=== PATIENT | female | born 1970 | race African-American/Black ===

== ENCOUNTER 2018-03-30 07:28 | Inpatient (IN) ==
[2018-03-24 12:09] LABS: Basophils # 0.1 10*3/uL (0.0-0.2); Basophils % 0.6 % (0.0-0.8); Eosinophils % 0.3 % (0.00-10.9); Hematocrit 37.3 VOL% (35.7-47.0); Hemoglobin 11.8 GM/DL (12.0-16.0); Immature Granulocytes % 0.7 %; Immature Granulocytes Absolute 0.08 #; Lymphocytes % 33.2 % (21.3-54.2); Mean Corpuscular HGB Conc 31.6 GM/DL (32-36); Mean Corpuscular Hemoglobin 33 PG (27-34); Mean Corpuscular Volume 103.9 FL (87-102); Mean Platelet Volume 10.3 FL (9.6-12.0); Monocytes # 0.7 10*3/uL (0.11-0.8); Monocytes % 5.9 % (1.7-12.7); Neutrophils # 7.2 10*3/uL (1.4-7.4); Neutrophils % 59.3 % (38.7-73.9); Platelet Count 352 T/CUMM (130-400); Red Blood Count 3.59 MC/CUMM (3.8-5.5); Red Cell Distribution Width 15.9 % (9.3-17.3); White Blood Count 12.1 T/CUMM (4-12)
[2018-03-24 12:23] LABS: Calcium 9.1 MG/DL (8.5-10.1); Osmolality,Calculated 283.5 MOS/KG (273-304); Potassium 3.5 MMOL/L (3.5-5.1)
[~2018-03-30 07:28] MED LIST: LACTATED RINGERS 1,000 ML IV SCH; ceFAZolin 1,000 MG VIAL ONE; ceFAZolin 1,000 MG in SYRINGE 1 EACH IV ONE
[2018-03-30] MEDS ORDERED: ONDANSETRON 4 MG/2 ML VIAL IV ONE (09:18)
[2018-03-30] MEDS ORDERED: SCOPOLAMINE 1.5 MG PATCH TRANSDERM ONE ×2 (09:18→09:34)
[2018-03-30] MEDS ORDERED: LORazepam 1 MG TABLET PO ONE (09:18)
[2018-03-30] MEDS ORDERED: FAMOTIDINE 20 MG TABLET PO ONE (09:18)
[2018-03-30] MEDS ORDERED: FAMOTIDINE 20 MG TABLET ONE (09:34)
[2018-03-30] MEDS ORDERED: ONDANSETRON 4 MG/2 ML VIAL ONE (09:34)
[2018-03-30] MEDS ORDERED: LORazepam 1 MG TABLET ONE (09:34)
[2018-03-30] MEDS ORDERED: LIDOCAINE 1%/EPI INJ 20 ML VIAL ONE (09:36)
[2018-03-30] MEDS ORDERED: TISSUE ADHESIVE 1 EACH APPLICATOR TOP ONE (11:07)
[2018-03-30] MEDS ORDERED: MIDAZOLAM 2 MG/2 ML VIAL ONE (11:54)
[2018-03-30] MEDS ORDERED: ROCURONIUM 100 MG/10 ML VIAL IV ONE (11:56)
[2018-03-30] MEDS ORDERED: PROPOFOL 200 MG/20 ML VIAL IV ONE (11:56)
[2018-03-30] MEDS ORDERED: ALBUTEROL/IPRATROPIUM 3 ML NEB RESP TX PRN (11:58)
[2018-03-30] MEDS ORDERED: ONDANSETRON 4 MG/2 ML VIAL IV PRN ×2 (11:58)
[2018-03-30] MEDS ORDERED: ESMOLOL 100 MG/10 ML VIAL IV ONE (11:58)
[2018-03-30] MEDS ORDERED: GLUCAGON 1 MG VIAL IM PRN (11:58)
[2018-03-30] MEDS ORDERED: PROMETHAZINE 25 MG/1 ML VIAL IM PRN (11:58)
[2018-03-30] MEDS ORDERED: HYDROmorphone 2 MG/1 ML VIAL IV PRN ×2 (11:58)
[2018-03-30] MEDS ORDERED: ACETAMINOPHEN 325 MG TABLET PO PRN (11:58)
[2018-03-30] MEDS ORDERED: METOPROLOL TARTRATE 5 MG/5 ML VIAL IV ONE (11:58)
[2018-03-30] MEDS ORDERED: DEXTROSE 50% 25 GM/50 ML SYRINGE IV PRN (11:58)
[2018-03-30] MEDS ORDERED: GLYCOPYRROLATE 0.4 MG/2 ML VIAL ONE ×2 (11:59)
[2018-03-30] MEDS ORDERED: SUCCINYLCHOLINE 200 MG/10 ML VIAL ONE (12:00)
[2018-03-30] MEDS ORDERED: NEOSTIGMINE 10 MG/10 ML VIAL ONE (12:00)
[2018-03-30] MEDS ORDERED: SEVOFLURANE 1 UNIT/15 MINUTE INH ONE (12:00)
[2018-03-30] MEDS ORDERED: HYDROmorphone 2 MG/1 ML VIAL ONE (12:01)
[2018-03-30] MEDS: HYDROmorphone 2 MG/1 ML VIAL IV PRN ×3 (12:13→12:22)
[2018-03-30] MEDS ORDERED: LORazepam 0.5 MG TABLET PO PRN ×2 (13:24→15:00)
[2018-03-30] MEDS ORDERED: ZALEPLON 5 MG CAPSULE PO PRN (13:30)
[2018-03-30] MEDS: LACTATED RINGERS 1,000 ML IV SCH ×2 (13:47→21:22)
[2018-03-30] MEDS: BETHANECHOL 25 MG TABLET PO SCH ×3 (13:48→21:26)
[2018-03-30] MEDS: INSULIN LISPRO 100 UNIT/ML SUBCUT SCH ×2 (13:51→16:54)
[2018-03-30] MEDS: cefOXitin 2,000 MG in SYRINGE 1 EACH IV SCH ×2 (16:16→21:23)
[2018-03-30] MEDS: PROCHLORPERAZINE 10 MG TABLET PO PRN (17:28)
[2018-03-30] MEDS: tiZANidine 4 MG TABLET PO SCH (17:29)
[2018-03-30] MEDS ORDERED: tiZANidine 4 MG TABLET PO SCH (21:00)
[2018-03-30] MEDS: CLOTRIMAZOLE/BETAMETHASONE CREAM 15 GM TUBE TOP SCH (21:26)
[2018-03-31] MEDS: PROCHLORPERAZINE 10 MG TABLET PO PRN ×2 (03:04→08:43)
[2018-03-31] MEDS: cefOXitin 2,000 MG in SYRINGE 1 EACH IV SCH (03:09)
[2018-03-31] MEDS: LACTATED RINGERS 1,000 ML IV SCH ×2 (03:14→11:42)
[2018-03-31 04:38] LABS: Basophils % 0.4 % (0.0-0.8); Eosinophils % 0.5 % (0.00-10.9); Hematocrit 34.7 VOL% (35.7-47.0); Hemoglobin 11.2 GM/DL (12.0-16.0); Immature Granulocytes % 0.4 %; Immature Granulocytes Absolute 0.03 #; Lymphocytes # 2.2 10*3/uL (1.4-4.0); Lymphocytes % 28.7 % (21.3-54.2); Mean Corpuscular HGB Conc 32.3 GM/DL (32-36); Mean Corpuscular Hemoglobin 32 PG (27-34); Mean Corpuscular Volume 100.3 FL (87-102); Mean Platelet Volume 10.7 FL (9.6-12.0); Monocytes # 0.7 10*3/uL (0.11-0.8); Monocytes % 8.8 % (1.7-12.7); Neutrophils # 4.8 10*3/uL (1.4-7.4); Neutrophils % 61.2 % (38.7-73.9); Platelet Count 368 T/CUMM (130-400); Red Blood Count 3.46 MC/CUMM (3.8-5.5); White Blood Count 7.8 T/CUMM (4-12)
[2018-03-31 05:14] LABS: Calcium 8.6 MG/DL (8.5-10.1); Osmolality,Calculated 276.5 MOS/KG (273-304); Potassium 3.2 MMOL/L (3.5-5.1)
[2018-03-31] MEDS ORDERED: LEVOTHYROXINE 150 MCG TABLET PO SCH (06:30)
[2018-03-31 07:52] VITALS: BP 131/85
[2018-03-31] MEDS: INSULIN LISPRO 100 UNIT/ML SUBCUT SCH (08:33)
[2018-03-31] MEDS: tiZANidine 4 MG TABLET PO SCH (08:42)
[2018-03-31] MEDS: BETHANECHOL 25 MG TABLET PO SCH (08:43)
[2018-03-31] MEDS ORDERED: PANTOPRAZOLE 40 MG TABLET PO SCH (09:00)
[2018-03-31] MEDS ORDERED: GEMFIBROZIL 600 MG TABLET PO SCH (09:00)
[2018-03-31] MEDS ORDERED: TRIAMTERENE/HCTZ 37.5-25 MG CAPSULE PO SCH (09:00)
[2018-03-31] MEDS: CLOTRIMAZOLE/BETAMETHASONE CREAM 15 GM TUBE TOP SCH (11:44)
[2018-04-01] MEDS ORDERED: CHOLECALCIFEROL 5,000 UNIT TABLET PO SCH (09:00)
== END 2018-03-31 11:43 | disposition home or self-care (01) | DRG 41 ==
LOC: N.OR 07:28 → N.SDSINP 07:28 → N.3E 11:58
PROVIDERS: ADMIT Surgery; ATTEND Surgery

== ENCOUNTER 2018-04-10 05:54 | Inpatient (IN) ==
[2018-04-10] MEDS ORDERED: NOREPINEPHRINE 8 MG in SODIUM CHLORIDE 0.9% 242 ML IV PRN (06:00)
[2018-04-10] MEDS ORDERED: VANCOMYCIN INJ 1,000 MG in SODIUM CHLORIDE 0.9% 250 ML IV STA ×2 (06:00→06:48)
[2018-04-10] MEDS ORDERED: SODIUM CHLORIDE 0.9% 1,000 ML IV STA (06:02)
[2018-04-10] MEDS ORDERED: NOREPINEPHRINE 16 MG in SODIUM CHLORIDE 0.9% 234 ML IV PRN (06:02)
[2018-04-10] MEDS ORDERED: PROMETHAZINE 25 MG/1 ML VIAL IM STA (06:03)
[2018-04-10 06:22] LABS: ABG Base Excess -18.1 MMOL/L (-2.5-2.5); ABG HCO3 11.3 MMOL/L (20-26); ABG Oxygen Saturation 94.4 % (95-100); ABG PCO2 28.4 MM HG (35-48); ABG PO2 93.9 MM HG (80-95); ABG TCO2 9.2 MMOL/L (23-27); Allen Test Positive
[2018-04-10 06:23] LABS: ABG PH 7.155 (7.35-7.45)
[2018-04-10 06:52] LABS: Amorphous Crystals,Urine Occasional /HPF (Few); Apearance,Urine CLOUDY (Clear); Bilirubin,Urine Negative (Negative); Blood, Urine Moderate mg/dL (Negative); Glucose,Urine (UA) Negative (Negative); Hyaline Casts,Urine 27 /LPF (0-3); Ketones,Urine Negative (Negative); Mucus,Urine Occasional /LPF (Occasional); Nitrite,Urine Negative (Negative); Protein,Urine 100 MG/DL; RBC,Urine 15 /HPF (0-4); Squamous Epithelial Cell,Urine Occasional /HPF (0-10); Urine Color Amber (Yellow); Urine Specific Gravity 1.019 (1.001-1.035)
[2018-04-10 07:21] LABS: Basophils % 0.2 % (0.0-0.8); Eosinophils # 0.5 10*3/uL (0.0-0.87); Eosinophils % 3.7 % (0.00-10.9); Hematocrit 37.6 VOL% (35.7-47.0); Immature Granulocytes % 1.8 %; Immature Granulocytes Absolute 0.22 #; Lymphocytes # 2.1 10*3/uL (1.4-4.0); Lymphocytes % 16.5 % (21.3-54.2); Mean Corpuscular HGB Conc 31.9 GM/DL (32-36); Mean Corpuscular Hemoglobin 33 PG (27-34); Mean Corpuscular Volume 102.5 FL (87-102); Mean Platelet Volume 11.3 FL (9.6-12.0); Monocytes % 7.8 % (1.7-12.7); NRBC # 0.04 10*3/uL; Neutrophils # 8.8 10*3/uL (1.4-7.4); Platelet Count 374 T/CUMM (130-400); Red Blood Count 3.67 MC/CUMM (3.8-5.5); Red Cell Distribution Width 15.4 % (9.3-17.3); White Blood Count 12.5 T/CUMM (4-12)
[2018-04-10 07:29] LABS: INR 1.2; PT Patient Result 12.9 SECS; Partial Thromboplastin Time 32.4 SECS (0-40)
[2018-04-10] MEDS: PIPERACILLIN/TAZOBACTAM 3,375 MG in SODIUM CHLORIDE 0.9% 100 ML IV SCH ×2 (07:35→13:53)
[2018-04-10 07:44] LABS: Anisocytosis Slight; Band Neutrophils 58 % (0-10); Eosinophils 1 % (0-10); Lymphocytes 21 % (20-55); Metamyelocytes 5 %; Nucleated Red Blood Cells 1 (0-5); Platelet Estimate Normal; Poikilocytosis Slight; Segmented Neutrophils 11 % (50-85); Total Cells Counted 100
[2018-04-10 07:45] LABS: Macrocytosis Slight
[2018-04-10] MEDS ORDERED: LORazepam 2 MG/1 ML VIAL ONE (07:49)
[2018-04-10 07:50] LABS: Alanine Aminotransferase 34 U/L (13-56); Albumin 2.6 G/DL (3.4-5.0); Alkaline Phosphatase 125 U/L (45-117); Aspartate Amino Transferase 47 U/L (0-37); Blood Urea Nitrogen 65 MG/DL (7-18); Calcium 7.4 MG/DL (8.5-10.1); Glucose 165 MG/DL (74-106); Potassium 4.4 MMOL/L (3.5-5.1); Sodium 136 MMOL/L (136-145); Total Protein 6.7 G/DL (6.4-8.3)
[2018-04-10] MEDS ORDERED: LORazepam 2 MG/1 ML VIAL IV STA (07:52)
[2018-04-10] MEDS ORDERED: ALBUTEROL 2.5 MG/3 ML NEB RESP TX PRN (08:38)
[2018-04-10] MEDS ORDERED: ALBUTEROL 2.5 MG/3 ML NEB RESP TX STA (08:51)
[2018-04-10] MEDS ORDERED: SODIUM BICARB INJ 50 MEQ in SODIUM CHLORIDE 0.45% 1,000 ML IV SCH (09:00)
[2018-04-10] MEDS: ONDANSETRON 4 MG/2 ML VIAL IV PRN ×2 (10:35→22:03)
[2018-04-10 12:04] LABS: Calcium 7.1 MG/DL (8.5-10.1); Potassium 3.7 MMOL/L (3.5-5.1)
[2018-04-10] MEDS: ALBUTEROL/IPRATROPIUM 3 ML NEB RESP TX SCH ×2 (13:27→19:39)
[2018-04-10] MEDS ORDERED: LEVOFLOXACIN INJ 750 MG in PREMIX 1 EACH IV ONE (13:30)
[2018-04-10] MEDS ORDERED: PIPERACILLIN/TAZOBACTAM 3,375 MG in SODIUM CHLORIDE 0.9% 100 ML IV SCH (14:00)
[2018-04-10] MEDS: SODIUM BICARB INJ 150 MEQ in STERILE WATER INJ 850 ML IV SCH ×2 (15:09→22:03)
[2018-04-10] MEDS: HYDROmorphone 2 MG/1 ML VIAL IV PRN ×2 (16:23→22:03)
[2018-04-11] MEDS: ALBUTEROL/IPRATROPIUM 3 ML NEB RESP TX SCH ×4 (01:20→20:12)
[2018-04-11] MEDS: PIPERACILLIN/TAZOBACTAM 3,375 MG in SODIUM CHLORIDE 0.9% 100 ML IV SCH ×2 (03:11→13:47)
[2018-04-11 04:10] LABS: ABG Base Excess 4.9 MMOL/L (-2.5-2.5); ABG HCO3 28.8 MMOL/L (20-26); ABG Oxygen Saturation 96.7 % (95-100); ABG PCO2 42.8 MM HG (35-48); ABG PH 7.446 (7.35-7.45); ABG PO2 97.6 MM HG (80-95); ABG TCO2 26.6 MMOL/L (23-27); Allen Test Positive
[2018-04-11] MEDS: HYDROmorphone 2 MG/1 ML VIAL IV PRN ×3 (04:12→18:28)
[2018-04-11] MEDS: SODIUM BICARB INJ 150 MEQ in STERILE WATER INJ 850 ML IV SCH (04:12)
[2018-04-11 04:39] LABS: Basophils % 0.3 % (0.0-0.8); Eosinophils % 0.4 % (0.00-10.9); Hematocrit 29.9 VOL% (35.7-47.0); Hemoglobin 10.4 GM/DL (12.0-16.0); Immature Granulocytes % 2.1 %; Immature Granulocytes Absolute 0.17 #; Lymphocytes # 1.1 10*3/uL (1.4-4.0); Lymphocytes % 13.7 % (21.3-54.2); Mean Corpuscular HGB Conc 34.8 GM/DL (32-36); Mean Corpuscular Hemoglobin 33 PG (27-34); Mean Corpuscular Volume 94.9 FL (87-102); Mean Platelet Volume 11.5 FL (9.6-12.0); Monocytes # 0.9 10*3/uL (0.11-0.8); Monocytes % 11.8 % (1.7-12.7); Neutrophils # 5.7 10*3/uL (1.4-7.4); Neutrophils % 71.7 % (38.7-73.9); Platelet Count 292 T/CUMM (130-400); Red Blood Count 3.15 MC/CUMM (3.8-5.5); Red Cell Distribution Width 14.6 % (9.3-17.3); White Blood Count 7.9 T/CUMM (4-12)
[2018-04-11 05:06] LABS: Calcium 7.1 MG/DL (8.5-10.1); Osmolality,Calculated 297.4 MOS/KG (273-304); Potassium 2.7 MMOL/L (3.5-5.1)
[2018-04-11 05:07] LABS: Hypochromasia 1+; Macrocytosis Slight; Platelet Estimate Adequate
[2018-04-11] MEDS ORDERED: POTASSIUM CHLORIDE RIDER 10 MEQ in PREMIX 1 EACH IV PRN (05:43)
[2018-04-11] MEDS: POTASSIUM CHLORIDE RIDER 20 MEQ in PREMIX 1 EACH IV PRN ×3 (05:59→17:27)
[2018-04-11] MEDS: LEVOTHYROXINE 100 MCG VIAL IV SCH (06:10)
[2018-04-11] MEDS: ASPIRIN CHEW 81 MG TABLET PO SCH (08:00)
[2018-04-11] MEDS: POTASSIUM CHLORIDE INJ 30 MEQ in SODIUM CHLORIDE 0.45% 1,000 ML IV SCH ×2 (09:00→19:09)
[2018-04-11] MEDS: HEPARIN 5,000 UNIT/1 ML VIAL SUBCUT SCH ×2 (09:31→17:23)
[2018-04-11] MEDS: POTASSIUM CHLORIDE RIDER 10 MEQ in PREMIX 1 EACH IV PRN ×2 (11:59→20:00)
[2018-04-11] MEDS ORDERED: DEXTROSE 50% 25 GM/50 ML SYRINGE IV PRN (13:44)
[2018-04-11] MEDS ORDERED: GLUCAGON 1 MG VIAL IM PRN (13:44)
[2018-04-11 14:20] LABS: Calcium 7.1 MG/DL (8.5-10.1); Osmolality,Calculated 293.1 MOS/KG (273-304); Potassium 3.4 MMOL/L (3.5-5.1)
[2018-04-11] MEDS: AMINO ACIDS/DEXT/LYTES 4.25-5% 2,000 ML IV SCH (17:17)
[2018-04-11] MEDS ORDERED: HYDROmorphone 2 MG/1 ML VIAL IV ONE (22:37)
[2018-04-12] MEDS: ALBUTEROL/IPRATROPIUM 3 ML NEB RESP TX SCH ×4 (01:59→19:46)
[2018-04-12] MEDS: HEPARIN 5,000 UNIT/1 ML VIAL SUBCUT SCH ×3 (02:13→18:57)
[2018-04-12] MEDS: PIPERACILLIN/TAZOBACTAM 3,375 MG in SODIUM CHLORIDE 0.9% 100 ML IV SCH ×3 (02:13→19:01)
[2018-04-12] MEDS: HYDROmorphone 2 MG/1 ML VIAL IV PRN ×3 (03:55→22:03)
[2018-04-12 04:12] LABS: Basophils % 0.2 % (0.0-0.8); Eosinophils # 0.1 10*3/uL (0.0-0.87); Eosinophils % 0.9 % (0.00-10.9); Hematocrit 29.8 VOL% (35.7-47.0); Hemoglobin 9.9 GM/DL (12.0-16.0); Lymphocytes # 1.6 10*3/uL (1.4-4.0); Lymphocytes % 18.8 % (21.3-54.2); Mean Corpuscular HGB Conc 33.2 GM/DL (32-36); Mean Corpuscular Hemoglobin 33 PG (27-34); Mean Platelet Volume 10.9 FL (9.6-12.0); Monocytes # 0.7 10*3/uL (0.11-0.8); NRBC # 0.02 10*3/uL; Neutrophils # 5.6 10*3/uL (1.4-7.4); Neutrophils % 65.1 % (38.7-73.9); Platelet Count 265 T/CUMM (130-400); Red Blood Count 3.04 MC/CUMM (3.8-5.5); Red Cell Distribution Width 15.3 % (9.3-17.3); White Blood Count 8.6 T/CUMM (4-12)
[2018-04-12 05:02] LABS: Band Neutrophils 4 % (0-10); Hypochromasia 1+; Lymphocytes 23 % (20-55); Platelet Estimate Adequate; Segmented Neutrophils 67 % (50-85); Total Cells Counted 100
[2018-04-12 05:03] LABS: Macrocytosis Slight
[2018-04-12 05:08] LABS: Calcium 7.6 MG/DL (8.5-10.1); Osmolality,Calculated 282.1 MOS/KG (273-304); Potassium 3.6 MMOL/L (3.5-5.1)
[2018-04-12] MEDS: POTASSIUM CHLORIDE RIDER 20 MEQ in PREMIX 1 EACH IV PRN (05:23)
[2018-04-12] MEDS: POTASSIUM CHLORIDE INJ 30 MEQ in SODIUM CHLORIDE 0.45% 1,000 ML IV SCH ×2 (05:29→16:54)
[2018-04-12] MEDS: LEVOTHYROXINE 100 MCG VIAL IV SCH (07:07)
[2018-04-12] MEDS: ASPIRIN CHEW 81 MG TABLET PO SCH (09:06)
[2018-04-12] MEDS: LEVOFLOXACIN INJ 750 MG in PREMIX 1 EACH IV SCH (11:09)
[2018-04-12] MEDS: POTASSIUM PHOS/SOD PHOS 250 MG TABLET PO SCH ×3 (12:32→22:03)
[2018-04-12] MEDS: METOPROLOL TARTRATE 25 MG TABLET PO SCH ×2 (12:32→22:03)
[2018-04-12] MEDS: LORazepam 1 MG TABLET PO PRN (16:50)
[2018-04-12] MEDS: AMINO ACIDS/DEXT/LYTES 4.25-5% 2,000 ML IV SCH (18:33)
[2018-04-12] MEDS: ONDANSETRON 4 MG/2 ML VIAL IV PRN (22:04)
[2018-04-13] MEDS: ALBUTEROL/IPRATROPIUM 3 ML NEB RESP TX SCH ×6 (00:08→19:12)
[2018-04-13] MEDS: HEPARIN 5,000 UNIT/1 ML VIAL SUBCUT SCH ×3 (02:10→17:40)
[2018-04-13] MEDS: PIPERACILLIN/TAZOBACTAM 3,375 MG in SODIUM CHLORIDE 0.9% 100 ML IV SCH ×3 (02:10→17:40)
[2018-04-13] MEDS: POTASSIUM CHLORIDE INJ 30 MEQ in SODIUM CHLORIDE 0.45% 1,000 ML IV SCH ×3 (02:12→13:01)
[2018-04-13] MEDS: LEVOTHYROXINE 100 MCG VIAL IV SCH (06:02)
[2018-04-13 06:19] LABS: Basophils % 0.2 % (0.0-0.8); Eosinophils # 0.1 10*3/uL (0.0-0.87); Eosinophils % 0.6 % (0.00-10.9); Hematocrit 33.3 VOL% (35.7-47.0); Hemoglobin 10.6 GM/DL (12.0-16.0); Immature Granulocytes % 19.2 %; Immature Granulocytes Absolute 2.41 #; Lymphocytes % 23.5 % (21.3-54.2); Mean Corpuscular HGB Conc 31.8 GM/DL (32-36); Mean Corpuscular Hemoglobin 32 PG (27-34); Mean Corpuscular Volume 101.2 FL (87-102); Mean Platelet Volume 12.1 FL (9.6-12.0); Monocytes # 0.9 10*3/uL (0.11-0.8); Monocytes % 7.3 % (1.7-12.7); NRBC # 0.08 10*3/uL; Neutrophils # 6.2 10*3/uL (1.4-7.4); Neutrophils % 49.2 % (38.7-73.9); Platelet Count 293 T/CUMM (130-400); Red Blood Count 3.29 MC/CUMM (3.8-5.5); Red Cell Distribution Width 15.7 % (9.3-17.3); White Blood Count 12.6 T/CUMM (4-12)
[2018-04-13 06:26] LABS: Calcium 8.6 MG/DL (8.5-10.1); Osmolality,Calculated 278.5 MOS/KG (273-304)
[2018-04-13 06:51] LABS: Band Neutrophils 7 % (0-10); Hypochromasia 1+; Lymphocytes 22 % (20-55); Myelocytes 1 %; Nucleated Red Blood Cells 2 (0-5); Platelet Estimate Adequate; Segmented Neutrophils 59 % (50-85); Total Cells Counted 100
[2018-04-13 06:52] LABS: Macrocytosis Slight
[2018-04-13] MEDS: LEVOFLOXACIN INJ 750 MG in PREMIX 1 EACH IV SCH (09:11)
[2018-04-13] MEDS: METOPROLOL TARTRATE 25 MG TABLET PO SCH ×2 (09:11→22:27)
[2018-04-13] MEDS: POTASSIUM PHOS/SOD PHOS 250 MG TABLET PO SCH ×2 (09:11→12:50)
[2018-04-13] MEDS: ASPIRIN CHEW 81 MG TABLET PO SCH (09:13)
[2018-04-13] MEDS: HYDROmorphone 2 MG/1 ML VIAL IV PRN (16:07)
[2018-04-13] MEDS: ONDANSETRON 4 MG/2 ML VIAL IV PRN (16:52)
[2018-04-14] MEDS: ALBUTEROL/IPRATROPIUM 3 ML NEB RESP TX SCH ×4 (01:03→19:11)
[2018-04-14] MEDS: PIPERACILLIN/TAZOBACTAM 3,375 MG in SODIUM CHLORIDE 0.9% 100 ML IV SCH ×3 (03:13→17:36)
[2018-04-14] MEDS: POTASSIUM CHLORIDE INJ 30 MEQ in SODIUM CHLORIDE 0.45% 1,000 ML IV SCH ×3 (03:13→23:05)
[2018-04-14] MEDS: HEPARIN 5,000 UNIT/1 ML VIAL SUBCUT SCH ×3 (03:14→17:35)
[2018-04-14 06:02] LABS: Calcium 8.5 MG/DL (8.5-10.1); Osmolality,Calculated 280.4 MOS/KG (273-304)
[2018-04-14] MEDS ORDERED: HEPARIN LOCK FLUSH 500 UNIT/5 ML SYRINGE IV PRN (08:51)
[2018-04-14] MEDS: METOPROLOL TARTRATE 25 MG TABLET PO SCH ×2 (10:12→21:21)
[2018-04-14] MEDS: ASPIRIN CHEW 81 MG TABLET PO SCH (10:12)
[2018-04-14] MEDS: HEPARIN LOCK FLUSH 500 UNIT/5 ML SYRINGE IV SCH ×2 (10:13→21:21)
[2018-04-14] MEDS: LEVOTHYROXINE 100 MCG VIAL IV SCH (10:14)
[2018-04-14] MEDS: LEVOFLOXACIN INJ 750 MG in PREMIX 1 EACH IV SCH (10:15)
[2018-04-14] MEDS: LORazepam 1 MG TABLET PO PRN (19:53)
[2018-04-15] MEDS: ALBUTEROL/IPRATROPIUM 3 ML NEB RESP TX SCH ×2 (00:37→08:28)
[2018-04-15] MEDS: PIPERACILLIN/TAZOBACTAM 3,375 MG in SODIUM CHLORIDE 0.9% 100 ML IV SCH ×2 (01:27→11:03)
[2018-04-15] MEDS: HEPARIN 5,000 UNIT/1 ML VIAL SUBCUT SCH ×2 (01:27→09:01)
[2018-04-15] MEDS ORDERED: LEVOTHYROXINE 150 MCG TABLET PO SCH (06:30)
[2018-04-15] MEDS ORDERED: MAGNESIUM SULF RIDER 4 GM in PREMIX 1 EACH IV PRN (07:46)
[2018-04-15] MEDS ORDERED: MAGNESIUM SULF RIDER 2 GM in PREMIX 1 EACH IV PRN (07:46)
[2018-04-15] MEDS: ASPIRIN CHEW 81 MG TABLET PO SCH (09:01)
[2018-04-15] MEDS: METOPROLOL TARTRATE 25 MG TABLET PO SCH ×2 (09:01→09:36)
[2018-04-15] MEDS: HEPARIN LOCK FLUSH 500 UNIT/5 ML SYRINGE IV SCH (09:01)
[2018-04-15 10:49] VITALS: BP 156/85
[2018-04-15] MEDS: POTASSIUM CHLORIDE INJ 30 MEQ in SODIUM CHLORIDE 0.45% 1,000 ML IV SCH (11:01)
[2018-04-15] MEDS: LEVOFLOXACIN INJ 750 MG in PREMIX 1 EACH IV SCH (11:03)
[2018-04-15] MEDS ORDERED: LEVALBUTEROL 1.25 MG/3 ML NEB RESP TX SCH (13:00)
== END 2018-04-15 12:52 | disposition home or self-care (01) | DRG 871 ==
LOC: EDBD → EDUNIT# → N.ED 05:54 → N.EDINP 08:37 → SUATTDRO 08:37 → N.CC 12:39 → N.2E 04-13 14:38
PROVIDERS: ADMIT Hospitalist; ATTEND Internal Medicine

== ENCOUNTER 2020-12-24 06:06 | Inpatient (IN) ==
[2020-12-08 12:33] LABS: Basophils % 0.4 % (0.0-0.8); Eosinophils # 0.1 10*3/uL (0.0-0.87); Eosinophils % 1.3 % (0.00-10.9); Hematocrit 36.4 VOL% (35.7-47.0); Immature Granulocytes % 0.4 %; Immature Granulocytes Absolute 0.03 #; Lymphocytes # 2.9 10*3/uL (1.4-4.0); Lymphocytes % 34.3 % (21.3-54.2); Mean Corpuscular Volume 99.2 FL (87-102); Mean Platelet Volume 11.9 FL (9.6-12.0); Monocytes % 3.9 % (1.7-12.7); Neutrophils % 59.7 % (38.7-73.9); Platelet Count 325 T/CUMM (130-400); Red Blood Count 3.67 MC/CUMM (3.8-5.5); Red Cell Distribution Width 13.2 % (9.3-17.3); White Blood Count 8.5 T/CUMM (4-12)
[2020-12-08 13:01] LABS: Calcium 9.4 MG/DL (8.5-10.1); Osmolality,Calculated 286.3 MOS/KG (273-304); Potassium 4.3 MMOL/L (3.5-5.1)
[~2020-12-24 06:06] MED LIST changes: +ACETAMINOPHEN 500 MG TABLET PO ONE; +DIAZEPAM 5 MG TABLET PO ONE; +FAMOTIDINE 20 MG TABLET PO ONE; +GABAPENTIN 400 MG CAPSULE PO ONE; -LACTATED RINGERS 1,000 ML IV SCH; -ceFAZolin 1,000 MG VIAL ONE; -ceFAZolin 1,000 MG in SYRINGE 1 EACH IV ONE; +cefOXitin 1,000 MG in SODIUM CHLORIDE 0.9% 100 ML IV ONE
[2020-12-24] MEDS ORDERED: DIAZEPAM 5 MG TABLET PO ONE (06:29)
[2020-12-24] MEDS ORDERED: GABAPENTIN 400 MG CAPSULE PO ONE (06:29)
[2020-12-24] MEDS ORDERED: SCOPOLAMINE 1.5 MG PATCH TRANSDERM ONE (06:29)
[2020-12-24] MEDS ORDERED: ACETAMINOPHEN 500 MG TABLET PO ONE (06:29)
[2020-12-24] MEDS ORDERED: FAMOTIDINE 20 MG TABLET PO ONE (06:29)
[2020-12-24] MEDS ORDERED: LACTATED RINGERS 1,000 ML IV SCH (06:30)
[2020-12-24] MEDS ORDERED: BUPIVACAINE 0.5% 50 ML VIAL ONE (06:34)
[2020-12-24] MEDS ORDERED: LIDOCAINE 2% 5 ML VIAL ONE (06:37)
[2020-12-24] MEDS ORDERED: ROCURONIUM 50 MG/5 ML VIAL IV ONE (06:37)
[2020-12-24] MEDS ORDERED: fentaNYL 250 MCG/5 ML VIAL ONE (06:37)
[2020-12-24] MEDS ORDERED: propofoL 200 MG/20 ML VIAL IV ONE (06:37)
[2020-12-24] MEDS ORDERED: MIDAZOLAM 2 MG/2 ML VIAL ONE (06:37)
[2020-12-24] MEDS ORDERED: ONDANSETRON 4 MG/2 ML VIAL ONE ×2 (06:37→07:59)
[2020-12-24] MEDS ORDERED: KETOROLAC 30 MG/1 ML VIAL ONE (07:59)
[2020-12-24] MEDS ORDERED: DEXAMETHASONE 4 MG/1 ML VIAL ONE (07:59)
[2020-12-24] MEDS ORDERED: SEVOFLURANE 1 UNIT/15 MINUTE INH ONE ×4 (07:59→09:25)
[2020-12-24] MEDS ORDERED: LACTATED RINGERS 1,000 ML IV ONE (07:59)
[2020-12-24] MEDS ORDERED: SUCCINYLCHOLINE 200 MG/10 ML VIAL ONE (07:59)
[2020-12-24] MEDS ORDERED: fentaNYL 100 MCG/2 ML VIAL ONE (08:30)
[2020-12-24] MEDS ORDERED: PROMETHAZINE 25 MG/1 ML VIAL ONE (09:12)
[2020-12-24] MEDS ORDERED: ALBUTEROL/IPRATROPIUM 3 ML NEB RESP TX PRN (09:46)
[2020-12-24] MEDS ORDERED: ACETAMINOPHEN 325 MG TABLET PO PRN (09:46)
[2020-12-24] MEDS ORDERED: PROMETHAZINE 25 MG/1 ML VIAL IM PRN (09:46)
[2020-12-24] MEDS ORDERED: ONDANSETRON 4 MG/2 ML VIAL IV PRN (09:46)
[2020-12-24] MEDS ORDERED: KETOROLAC 15 MG/1 ML VIAL IV PRN (09:46)
[2020-12-24] MEDS ORDERED: LORazepam 1 MG TABLET PO PRN (09:49)
[2020-12-24] MEDS ORDERED: DEXTROSE 50% 25 GM/50 ML VIAL IV PRN (09:51)
[2020-12-24] MEDS ORDERED: GLUCAGON 1 MG VIAL IM PRN (09:51)
[2020-12-24 09:53] LABS: Bilirubin,Urine Negative (Negative); Blood, Urine Negative (Negative); Glucose,Urine (UA) Negative (Negative); Ketones,Urine Negative (Negative); Nitrite,Urine Negative (Negative); Protein,Urine Negative; Urine Appearance CLEAR (Clear); Urine Color Straw (Yellow); Urine Specific Gravity 1.005 (1.001-1.035); Urine Urobilinogen < 2.0 EU/DL (0.2-1.0)
[2020-12-24] MEDS ORDERED: LABETALOL 20 MG/4 ML SYRINGE IV ONE (10:15)
[2020-12-24] MEDS ORDERED: METOPROLOL TARTRATE 5 MG/5 ML VIAL IV ONE (10:22)
[2020-12-24] MEDS: HYDROmorphone 2 MG/1 ML VIAL IV PRN ×4 (10:35→23:05)
[2020-12-24] MEDS ORDERED: INFLUENZA VIRUS VACCINE 0.5 ML SYRINGE IM ONE (11:48)
[2020-12-24] MEDS: LACTATED RINGERS 1,000 ML IV SCH ×2 (13:40→23:07)
[2020-12-24] MEDS: INSULIN LISPRO 100 UNIT/ML SUBCUT SCH ×2 (13:41→17:57)
[2020-12-24] MEDS: tiZANidine 4 MG TABLET PO SCH ×2 (16:50→20:53)
[2020-12-24] MEDS: ONDANSETRON 4 MG/2 ML VIAL IV PRN (23:07)
[2020-12-25] MEDS: INSULIN LISPRO 100 UNIT/ML SUBCUT SCH ×4 (00:50→17:46)
[2020-12-25] MEDS: PANTOPRAZOLE 40 MG VIAL IV SCH ×2 (01:35→10:54)
[2020-12-25] MEDS: HYDROmorphone 2 MG/1 ML VIAL IV PRN ×3 (02:14→10:43)
[2020-12-25] MEDS: LACTATED RINGERS 1,000 ML IV SCH ×3 (04:47→22:42)
[2020-12-25 05:29] LABS: Basophils % 0.1 % (0.0-0.8); Hematocrit 37.2 VOL% (35.7-47.0); Immature Granulocytes % 0.6 %; Immature Granulocytes Absolute 0.12 #; Lymphocytes # 3.1 10*3/uL (1.4-4.0); Lymphocytes % 16.3 % (21.3-54.2); Mean Corpuscular HGB Conc 32.3 GM/DL (32-36); Mean Corpuscular Volume 98.2 FL (87-102); Mean Platelet Volume 11.1 FL (9.6-12.0); Monocytes % 5.5 % (1.7-12.7); Neutrophils % 77.5 % (38.7-73.9); Platelet Count 371 T/CUMM (130-400); Red Blood Count 3.79 MC/CUMM (3.8-5.5); Red Cell Distribution Width 12.9 % (9.3-17.3); White Blood Count 18.7 T/CUMM (4-12)
[2020-12-25] MEDS: LEVOTHYROXINE 137 MCG TABLET PO SCH (05:47)
[2020-12-25] MEDS: ENOXAPARIN 40 MG/0.4 ML SYRINGE SUBCUT SCH (05:47)
[2020-12-25 06:04] LABS: Calcium 9.4 MG/DL (8.5-10.1); Osmolality,Calculated 281.4 MOS/KG (273-304); Potassium 4.3 MMOL/L (3.5-5.1)
[2020-12-25] MEDS: ONDANSETRON 4 MG/2 ML VIAL IV PRN (07:14)
[2020-12-25] MEDS: tiZANidine 4 MG TABLET PO SCH ×4 (10:43→20:30)
[2020-12-25] MEDS: METOPROLOL SUCCINATE XL 25 MG TABLET PO SCH (10:43)
[2020-12-26] MEDS ORDERED: LACTATED RINGERS 1,000 ML IV ONE (00:18)
[2020-12-26] MEDS: INSULIN LISPRO 100 UNIT/ML SUBCUT SCH ×4 (00:32→17:04)
[2020-12-26 01:28] LABS: Basophils % 0.3 % (0.0-0.8); Eosinophils # 0.2 10*3/uL (0.0-0.87); Eosinophils % 1.6 % (0.00-10.9); Hematocrit 28.2 VOL% (35.7-47.0); Hemoglobin 9.1 GM/DL (12.0-16.0); Immature Granulocytes % 0.5 %; Immature Granulocytes Absolute 0.05 #; Lymphocytes # 2.8 10*3/uL (1.4-4.0); Lymphocytes % 27.9 % (21.3-54.2); Mean Corpuscular HGB Conc 32.3 GM/DL (32-36); Mean Corpuscular Volume 98.9 FL (87-102); Monocytes % 8.6 % (1.7-12.7); Neutrophils % 61.1 % (38.7-73.9); Platelet Count 225 T/CUMM (130-400); Red Blood Count 2.85 MC/CUMM (3.8-5.5); Red Cell Distribution Width 13.1 % (9.3-17.3); White Blood Count 10.1 T/CUMM (4-12)
[2020-12-26 01:50] LABS: Blood Urea Nitrogen 13 MG/DL (7-18); Calcium 8.5 MG/DL (8.5-10.1); Carbon Dioxide 30 MMOL/L (21-32); Estimated Glom Filtration Rate 85 ML/MIN; Glucose 232 MG/DL (74-106); Osmolality,Calculated 279.8 MOS/KG (273-304); Potassium 3.5 MMOL/L (3.5-5.1); Sodium 137 MMOL/L (136-145)
[2020-12-26] MEDS: ENOXAPARIN 40 MG/0.4 ML SYRINGE SUBCUT SCH (04:42)
[2020-12-26] MEDS: LEVOTHYROXINE 137 MCG TABLET PO SCH (05:41)
[2020-12-26 06:47] LABS: Basophils % 0.4 % (0.0-0.8); Eosinophils # 0.2 10*3/uL (0.0-0.87); Eosinophils % 2.4 % (0.00-10.9); Hematocrit 31.3 VOL% (35.7-47.0); Hemoglobin 10.1 GM/DL (12.0-16.0); Immature Granulocytes % 0.5 %; Immature Granulocytes Absolute 0.05 #; Lymphocytes % 29.4 % (21.3-54.2); Mean Corpuscular HGB Conc 32.3 GM/DL (32-36); Mean Corpuscular Volume 100.3 FL (87-102); Mean Platelet Volume 11.1 FL (9.6-12.0); Monocytes % 7.7 % (1.7-12.7); Neutrophils % 59.6 % (38.7-73.9); Platelet Count 264 T/CUMM (130-400); Red Blood Count 3.12 MC/CUMM (3.8-5.5); Red Cell Distribution Width 13.1 % (9.3-17.3); White Blood Count 10.2 T/CUMM (4-12)
[2020-12-26] MEDS: METOPROLOL SUCCINATE XL 25 MG TABLET PO SCH (08:24)
[2020-12-26] MEDS: tiZANidine 4 MG TABLET PO SCH ×4 (09:19→21:47)
[2020-12-26] MEDS: PANTOPRAZOLE 40 MG VIAL IV SCH (09:20)
[2020-12-26] MEDS ORDERED: MAGNESIUM SULF RIDER 2 GM/50 ML PREMIX IV ONE (10:00)
[2020-12-26] MEDS: LACTATED RINGERS 1,000 ML IV SCH (16:54)
[2020-12-27] MEDS: INSULIN LISPRO 100 UNIT/ML SUBCUT SCH ×2 (00:37→06:01)
[2020-12-27] MEDS: ENOXAPARIN 40 MG/0.4 ML SYRINGE SUBCUT SCH (06:02)
[2020-12-27] MEDS: LEVOTHYROXINE 137 MCG TABLET PO SCH (06:08)
[2020-12-27] MEDS: LACTATED RINGERS 1,000 ML IV SCH (06:08)
[2020-12-27] MEDS: tiZANidine 4 MG TABLET PO SCH (09:16)
[2020-12-27] MEDS: PANTOPRAZOLE 40 MG VIAL IV SCH (09:16)
[2020-12-27 11:35] VITALS: BP 134/63
[2020-12-27] MEDS: METOPROLOL SUCCINATE XL 25 MG TABLET PO SCH (11:40)
== END 2020-12-27 13:30 | disposition home or self-care (01) | DRG 983 ==
LOC: N.OR 06:06 → N.SDSINP 06:08 → N.3E 11:28
PROVIDERS: ADMIT Surgery; ATTEND Surgery